=== PATIENT | male | born 1980 | race Caucasian/White ===

== ENCOUNTER 2016-10-31 12:16 | Emergency (ER) | payer BC ==
[2016-10-31 12:27] VITALS: BP 138/96
--- NOTE | 2016-10-31 12:42 | ED ---
Respiratory - History of Current Complaint Chief Complaint: UCRespiratory Stated Complaint: RESPIRATORY COMPLAINT Time Seen by Provider: 10/31/16 12:28 Hx Obtained From: Patient Onset/Duration: Gradual Onset - started 2 weeks ago with sinus congestion, seemed to get a bit better but last week started coughing. over past 2 days getting more fatigued and still coughing. tried mucinex with little relief Initial Severity: Mild Current Severity: Moderate Character: Cough (Nonproductive) Sputum Amount: Moderate - white Sputum Color: White Aggravating Factor(s): Exertion Alleviating Factor(s): Nothing Associated Signs and Symptoms: URI, Nasal Congestion - Allergy/Home Medications Allergies/Adverse Reactions: Allergies Allergy/AdvReac Type Severity Reaction Status Date / Time Penicillin V Allergy Unknown Unknown Verified 07/31/15 18:09 Reaction Details Home Medications: Home Medications Cetirizine* [ZyrTEC*] 10 mg PO DAILY 10/31/16 [History Confirmed 10/31/16] Phenylephrine-Dm [Daytime Cold & Cough Chil 2.5-5 mg/5Ml] 1 lizzette PO 10/31/16 [ History] Uusmzfsuxpqnn-Pjqidbvfqe-Enqso [Nyquil Severe Cold/Flu 5-6.25-10-325 mg/15Ml] 1 liq PO 10/31/16 [History] PMH/Surg Hx/FS Hx/Imm Hx Previously Healthy: Yes Endocrine/Hematology History: Denies: Hx Diabetes, Hx Thyroid Disease Cardiovascular History: Denies: Hx Hypertension Respiratory History: Reports: Hx Asthma Denies: Hx Chronic Obstructive Pulmonary Disease (COPD) GI History: Denies: Hx Ulcer Musculoskeletal History: Denies: Other Musculoskeletal History Neurological History: Denies: Hx Migraine Psychiatric History: Denies: Hx Anxiety - Surgical History Surgery Procedure, Year, and Place: leg, plate lt ankle Hx Anesthesia Reactions: No - Immunization History Immunizations Up to Date: Yes Infectious Disease History: No Infectious Disease History: Denies: Hx Hepatitis, Hx Human Immunodeficiency Virus (HIV), Traveled Outside the [place] in Last 30 Days - Family History Known Family History: Positive: None - Social History Occupation: Employed Full-time - [employer] Lives: With Family Alcohol Use: None Substance Use Type: Reports: None Smoking Status (MU): Never Smoked Tobacco Review of Systems Constitutional: Negative Positive: Fatigue. Negative: Fever, Chills Eyes: Negative Negative: Drainage Positive: Nasal Discharge - better this week. Negative: Sore Throat, Ear Ache Cardiovascular: Negative Positive: Cough. Negative: Shortness Of Breath Gastrointestinal: Negative Musculoskeletal: Negative Skin: Negative Negative: Rash Neurological: Negative Negative: Headache Psychological: Normal All Other Systems Reviewed And Are Negative: Yes Physical Exam Triage Information Reviewed: Yes Vital Signs On Initial Exam: Initial Vitals Temp Pulse Resp BP Pulse Ox 96.8 F 79 18 138/96 95 10/31/16 12:22 10/31/16 12:22 10/31/16 12:22 10/31/16 12:22 10/31/16 12:22 Vital Signs Reviewed: Yes Appearance: Positive: Well-Appearing, No Pain Distress, Well-Nourished Skin: Positive: Warm, Skin Color Reflects Adequate Perfusion, Dry ENT: Positive: Nasal congestion, TMs normal, Other - clear post nasal drip Neck: Positive: Supple, Nontender, No Lymphadenopathy Respiratory/Lung Sounds: Positive: Rhonchi, Other - dry cough on deep breath Cardiovascular: Positive: Normal, RRR, Pulses are Symmetrical in both Upper and Lower Extremities Neurological: Positive: Normal, Sensory/Motor Intact, Alert, Oriented to Person Place, Time Psychiatric: Positive: Normal Diagnostics - Vital Signs Vital Signs Temp Pulse Resp BP Pulse Ox 10/31/16 12:22 96.8 F 79 18 138/96 95 - Laboratory Lab Statement: Any lab studies that have been ordered have been reviewed, and results considered in the medical decision making process. Disposition - Differential Dx - Cardiopulmonary Differential Diagnoses - Cardiopulmonary: Bronchitis, Lower Resp Infection, Sinusitis - Diagnoses Provider Diagnoses: Bronchitis Discharge - Discharge Plan Condition: Stable Disposition: HOME Prescriptions: Azithromycin TAB* [Zithromax TAB (Z-KAELA) 250 mg #6 tabs] 2 tab PO .TODAY, THEN 1 DAILY #1 kaela Referrals: Lauren Bhatti MD [Primary Care Provider] - 3 Days (if no better) Additional Instructions: rest increase fluids use antibiotic as prescribed Report to ER if symptoms worsen
== END 2016-10-31 12:59 | disposition home or self-care (01) ==
LOC: UCEAST 12:16
DX: J40 Bronchitis, not specified as acute or chronic (principal); Z88.0 Allergy status to penicillin
CPT/HCPCS: 99212; G0463

== ENCOUNTER 2018-05-21 16:49 | Emergency (ER) | payer BC ==
[2018-05-21 17:34] VITALS: BP 135/83
[2018-05-21] MEDS ORDERED: Triamcinolone Acetonide* 40 MG/ML 1 ML VIAL IM ONE (17:59)
--- NOTE | 2018-05-21 18:04 | UC ---
Skin Complaint HPI - HPI Summary HPI Summary: 37 yo male with pruritic rash both arms x 1-2 days onset after working near possible poison [place] no fever/chills - History of Current Complaint Chief Complaint: UCSkin Time Seen by Provider: 05/21/18 17:36 Stated Complaint: RASH Hx Obtained From: Patient Onset/Duration: Gradual Onset Timing: Constant Onset Severity: Mild Current Severity: Mild Pain Intensity: 2 Pain Scale Used: 0-10 Numeric Location: Other - Left >right arm Character: Swelling, Pruritus, Redness, Raised Aggravating Factor(s): Touch Alleviating Factor(s): OTC Meds Associated Signs & Symptoms: Positive: Rash - Allergy/Home Medications Allergies/Adverse Reactions: Allergies Allergy/AdvReac Type Severity Reaction Status Date / Time penicillin V Allergy Unknown Verified 05/21/18 17:24 Reaction Details Home Medications: Home Medications Fluticasone NASAL SPRAY 50MCG* [Flonase NASAL SPRAY 50MCG*] 2 spray BOTH NARES DAILY 05/21/18 [History Confirmed 05/21/18] Loratadine [Claritin 10 MG CAP] 10 mg PO DAILY 05/21/18 [History Confirmed 05/21] diPHENhydraMINE CREAM 2%(NF) [Benadryl X-Strength CREAM 2 % (NF)] 1 applic TOPICAL TID PRN 05/21/18 [History Confirmed 05/21/18] Review of Systems Constitutional: Negative Skin: Rash Eyes: Negative ENT: Negative Respiratory: Negative Cardiovascular: Negative Gastrointestinal: Negative Genitourinary: Negative Motor: Negative Neurovascular: Negative Musculoskeletal: Negative Neurological: Negative Psychological: Negative Is Patient Immunocompromised?: No All Other Systems Reviewed And Are Negative: Yes PMH/Surg Hx/FS Hx/Imm Hx Previously Healthy: Yes - Surgical History Surgical History: Yes Surgery Procedure, Year, and Place: leg, plate lt ankle - Family History Known Family History: Positive: Hypertension, Other - CA, spinal stenosis - Social History Alcohol Use: Occasionally Substance Use Type: None Smoking Status (MU): Former Smoker When Did the Patient Quit Smoking/Using Tobacco: 2009 Physical Exam Triage Information Reviewed: Yes Appearance: Well-Appearing, No Pain Distress, Well-Nourished Vital Signs: Initial Vital Signs Temp 97.6 F 05/21/18 17:28 Pulse 77 05/21/18 17:28 Resp 16 05/21/18 17:28 BP 135/83 05/21/18 17:28 Pulse Ox 97 05/21/18 17:28 Vital Signs Reviewed: Yes Eyes: Positive: Conjunctiva Clear ENT: Positive: Hearing grossly normal, Pharynx normal, TMs normal, Uvula midline. Negative: Nasal congestion, Nasal drainage, Tonsillar swelling, Tonsillar exudate, Trismus, Muffled voice, Hoarse voice Neck: Positive: Supple, Nontender, No Lymphadenopathy Respiratory: Positive: Lungs clear, Normal breath sounds, No respiratory distress Cardiovascular: Positive: RRR, No Murmur Musculoskeletal: Positive: ROM Intact, No Edema Neurological: Positive: Alert Psychological Exam: Normal Skin Exam: Other - rash C/W contact dermatitis L>>R arm and hand Course/Dx - Diagnoses Provider Diagnoses: contact dermatitis Discharge - Sign-Out/Discharge Documenting (check all that apply): Patient Departure All imaging exams completed and their final reports reviewed: No Studies - Discharge Plan Condition: Stable Disposition: HOME Patient Education Materials: Poison Hazel (ED) Referrals: Lauren Bhatti MD [Primary Care Provider] - 6 Days (if not improved) - Billing Disposition and Condition Condition: STABLE Disposition: Home
== END 2018-05-21 18:37 | disposition home or self-care (01) ==
LOC: UCCORT 16:49
DX: L25.9 Unspecified contact dermatitis, unspecified cause (principal); Z88.0 Allergy status to penicillin
CPT/HCPCS: 96372; 99211; G0463; J3301

== ENCOUNTER 2019-11-17 08:37 | Day surgery (SDC) | payer BC ==
[~2019-11-17 08:37] MED LIST: Acetaminophen TAB* 325 MG PO ONE; Buffered Lidocaine 1% SYRIN* 1 ML/SYRINGE INTRADERM ONE; Lactated Ringers 1000 ML Bag* 1,000 ML IV SCH
[2019-11-17] MEDS ORDERED: Acetaminophen TAB* 325 MG ONE (08:58)
[2019-11-17] MEDS ORDERED: Buffered Lidocaine 1% SYRIN* 1 ML/SYRINGE INTRADERM ONE (08:59)
[2019-11-17] MEDS ORDERED: Midazolam* 1 MG/ML 2 ML VIAL (2 MG) ONE (08:59)
[2019-11-17] MEDS ORDERED: Clindamycin 900 MG/D5W BAG(*) 900 MG/50 ML BAG IVPB ONE (08:59)
[2019-11-17] MEDS ORDERED: Gelfoam Sponge SIZE 100* SPONGE ONE (09:41)
[2019-11-17] MEDS ORDERED: Bupivacaine 0.25% SDV* 30 ML ONE (09:41)
[2019-11-17] MEDS ORDERED: Naloxone* 0.4 MG/ML 1 ML VIAL IV PRN (09:49)
[2019-11-17] MEDS ORDERED: HYDROmorphone INJ1* 1 MG/ML SYRINGE IV PRN (09:49)
[2019-11-17] MEDS ORDERED: PROCHLORPERAZINE INJ 5 MG/ML 2 ML VIAL IV PRN (09:49)
[2019-11-17] MEDS ORDERED: oxyCODONE TAB* 5 MG TAB PO PRN (09:49)
[2019-11-17] MEDS ORDERED: diPHENhydraMINE IV* 50 MG/ML 1 ml VIAL (BENADRYL) IV PRN (09:49)
[2019-11-17] MEDS ORDERED: Propofol* 10 MG/ML 20 ML BTL ONE (10:03)
[2019-11-17] MEDS ORDERED: Lidocaine 2% PF * 5 ML VIAL ONE (10:03)
[2019-11-17] MEDS ORDERED: fentaNYL* 50 MCG/ML 2 ML VIAL (100 MCG VIAL) ONE ×2 (10:04→11:23)
[2019-11-17] MEDS ORDERED: Ondansetron INJ* 2 MG/ML VIAL ONE (10:45)
[2019-11-17] MEDS ORDERED: Ketorolac INJ* 30 MG/ML 1 ML VIAL ONE (10:45)
[2019-11-17] MEDS ORDERED: Dexamethasone IV* 4 MG/ML 1 ML (4 MG) ONE (10:45)
[2019-11-17] MEDS ORDERED: Lidocaine 2% JELLY* 6 ML JELLY TOPICAL ONE (11:08)
--- NOTE | 2019-11-17 11:38 | BRIEFOPN ---
Brief Operative/Procedure Note - Operation Details Pre-Op Diagnosis: Anal discharge Post-Op Diagnosis: Posterior fistula Procedures: EUA, seton placement Surgeon(s)/Proceduralists: Gail Lopez MD. Slide Developer: Fernando Rodriguez MD. Anesthesia: General LMA Estimated Blood Loss: Minimal Findings: Fistula openings at posterior midline tracking to distal rectum. 2 setons placed Specimen(s)/Culture(s) Description: None Complications: None
[2019-11-17] MEDS ORDERED: oxyCODONE TAB* 5 MG TAB ONE ×2 (11:40→11:42)
[2019-11-17 12:09] VITALS: BP 118/82
[2019-11-17] MEDS ORDERED: DiMENhydriNATE IV* 50 MG/ML VIAL ONE (12:40)
[2019-11-17] MEDS ORDERED: PROCHLORPERAZINE INJ 5 MG/ML 2 ML VIAL ONE (12:43)
--- NOTE | 2019-11-17 13:03 | OP ---
Operative Report - Blank - Operative Report Date of Operation: 11/17/19 Note: PRE-OP DX: Anal discharge POST-OP DX: Anal fistula PROCEDURE: Exam under anesthesia. Seton placement SURGEON: aGil Lopez MD HEALTH INSURANCE ADJUSTER: Fernando Rodriguez MD ANESTHESIOLOGIST: Dr Medrano ANESTHESIA: General LMA FLUIDS: Crystalloid EBL: Minimal FINDINGS: Fistula from distal rectum to posterior midline INDICATION: Stoney Bowman is a 39 year-old man who was seen in clinic for anal discharge which started about 3 months ago. He also had mild irritation of the surrounding skin. On exam in clinic, there were no obvious findings, but it appeared there was a pit at the posterior midline. I recommended exam under anesthesia in order to examine the area more thoroughly. I also talked about possible fistulotomy or incision and drainage, depending on the findings. Risks were discussed including but not limited to bleeding, infection, or incontinence. DESCRIPTION: The patient was placed in the supine position. SCDs were placed. The patient was warmed. Clindamycin 900 mg was given. General anesthesia with LMA was administered. The patient was then placed in lithotomy position. The perineum was prepped with chlorhexidine due to betadine allergy. The area was draped in the usual sterile fashion. A time out was called confirming the patient's name, date of , and procedure. Marcaine 0.25% was injected superficially and deep around the anus. There appeared to be two pits at the posterior midline. When the posterior rectal wall was palpated, there was a small amount of drainage from the pits. The more posterior pit was probed, and there was a tract connecting to the anterior pit. The probe was placed in the tract, and the skin was divided with electrocautery over the tract. The probe was then used to explore the wound and search for another tract. The probe was easily passed through a tract leading towards the posterior distal rectal wall. Hydrogen peroxide was injected through the tract which confirmed that there was a fistula between the posterior midline and rectum. The probe was placed through the fistula. Two silastic vessel loops were passed through the fistula. The ends were tied together with 0 silk to create loose setons. Marcaine 0.25% was injected at the posterior midline. Lidocaine gel was injected into the rectum. The area was covered with dry gauze. Needle and sponge counts were correct. The patient was extubated and brought to recovery in stable condition.
== END 2019-11-17 12:55 | disposition home or self-care (01) ==
LOC: OR 08:37
PROVIDERS: ATTEND Surgery Surgical Critical Care
DX: K60.5 Anorectal fistula (principal); J45.909 Unspecified asthma, uncomplicated; E66.01 Morbid (severe) obesity due to excess calories
CPT/HCPCS: A9270-GY; J0780; J1100; J1240; J1885; J2250; J2405; J2704; J3010; J3490